=== PATIENT | male | born 1970 | race Caucasian/White ===

== ENCOUNTER 2018-07-20 03:29 | Observation (INO) | payer BC ==
[2018-07-20] MEDS ORDERED: SODIUM CHLORIDE 0.9% 1000ML 1,000 ML IVS ONE ×2 (03:40→05:10)
[2018-07-20] MEDS ORDERED: ONDANSETRON INJ 4 MG/2 ML VIAL IV ONE (03:40)
--- NOTE | 2018-07-20 03:44 | ED.PDOC ---
History of Present Illness - General Chief Complaint: GI Problem Stated Complaint: N/V Time Seen by Provider: 07/20/18 03:34 Source: patient Exam Limitations: no limitations - History of Present Illness Initial Comments: WAS RECOVERED ALCOHOLIC FOR 90 D SOBER, DRANK TOO MUCH OVER THE WEEKEND. HAVING N/V SINCE THEN X 3 D BUT NO ABD PAIN AT ALL. LAST DRINK OF ETOH WAS 4 D AGO. NO BLOOD IN VOMIT. NAUSEA BUT NO DIARRHEA. Timing/Duration: constant Severity: moderate Improving Factors: nothing Worsening Factors: nothing Associated Symptoms: nausea/vomiting Allergies/Adverse Reactions: Allergies Codeine Adverse Reaction (Verified 07/20/18 05:20) Other hallucinations Home Medications: Ambulatory Orders Ondansetron [Zofran Odt] 8 mg PO Q8H PRN #15 tab 07/20/18 Review of Systems - Review of Systems Constitutional: Denies: chills, diaphoresis, fever, malaise, weakness EENTM: States: no symptoms reported Respiratory: States: no symptoms reported Cardiology: States: no symptoms reported Gastrointestinal/Abdominal: States: nausea, vomiting. Denies: abdominal pain, constipation, diarrhea Genitourinary: Denies: dysuria, frequency, pain Musculoskeletal: States: no symptoms reported Skin: States: no symptoms reported Neurological: States: no symptoms reported. Denies: headache, weakness Endocrine: Denies: intolerance to cold, intolerance to heat, increased hunger, increased thirst, unexplained weight gain, unexplained weight loss Hematologic/Lymphatic: Denies: blood clots, easy bleeding All other Systems: Reviewed and Negative Family Medical History - Family History Father Family History: Unknown Physical Exam - Physical Exam General Appearance: Alert, No apparent distress, Well Nourished Eye Exam: bilateral normal Ears, Nose, Throat: hearing grossly normal, normal ENT inspection Neck: full range of motion, normal inspection Respiratory: lungs clear, normal breath sounds Cardiovascular/Chest: normal peripheral pulses, regular rate, rhythm, no murmur Peripheral Pulses: radial,right: 2+, radial,left: 2+ Gastrointestinal/Abdominal: normal bowel sounds, non tender, soft, no organomegaly, no pulsatile mass Extremity: normal range of motion, normal inspection 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 07/20/18 05:15 LIPASE NOT ELEVATED. CBC NEUTROPHILIC LEUKOCYTOSIS CMP HYPONATREMIA, ELEV BUN, EMESIS, ACUTE DEHYDRATION - NS BOLUS X 2. HYPOKALEMIA - REPLACING PO. I WILL ORDER SERUM MAG, PHOS FOR COMPLETENESS. ELEV AST - H/O ALCOHOLISM. UA PENDING. SEVERE VIRAL GASTROENTERITIS BASED ON SYMPTOMATOLOGY, ELEV WBC AND NEUTS, NAUSEA RESULTING IN EMESIS X 3 D, RESULTING IN DEHYDRATION/HYPOVOLEMIA AND LOW ELECTROLYTES (NA, K+). NOTE: PT IS 4 D SOBER THUS NO CONCERN FOR DELIRIUM TREMENS. I BELIEVE THE DRINKING OVER THE WEEKEND IS COINCIDENTAL TIMING WITH THE GASTROENTERITIS. WITH LYTES LOW THEY ARE AND DEHYDRATION/N/V, PT NEEDS IV REPLETION. I SPOKE WITH KEELEY FALK, HOSPITALIST WHO IS ADMITTING. THANK YOU, [facility] AND KEELEY FALK, FOR ACCEPTING FURTHER CARE OF THIS PT. Departure - Departure Clinical Impression: Viral gastroenteritis, Hypovolemia due to dehydration, Acute hyponatremia, Hypokalemia, Elevated BUN, Elevated AST (SGOT), Neutrophilic leukocytosis Nausea & vomiting Qualifiers: Vomiting type: unspecified Vomiting Intractability: non-intractable Qualified Code(s): R11.2 - Nausea with vomiting, unspecified Disposition: Admit Patient Condition: Fair Departure Forms: ED Discharge - Pt. Copy, Patient Portal Self Enrollment Diet: bland diet Prescriptions: Ondansetron [Zofran Odt] 8 mg PO Q8H PRN #15 tab PRN Reason: Nausea Home Medications: Ambulatory Orders Ondansetron [Zofran Odt] 8 mg PO Q8H PRN #15 tab 07/20/18 Decision To Admit - Decistion To Admit Decision to Admit Reason: Admit from ER Decision to Admit Date: 07/20/18 Decision to Admit Time: 05:28
[2018-07-20] MEDS ORDERED: POTASSIUM CHLORIDE 20 MEQ TAB PO ONE (05:12)
[2018-07-20] MEDS ORDERED: POTASSIUM BICARBONATE 25 MEQ TAB ONE (05:17)
[2018-07-20] MEDS ORDERED: POTASSIUM BICARBONATE 25 MEQ TAB PO ONE (05:21)
--- NOTE | 2018-07-20 05:31 | HP ---
SUPERVISING PHYSICIAN: Alexandr Rodriguez MD CHIEF COMPLAINT: Nausea, vomiting and hiccups. HISTORY OF PRESENT ILLNESS: This is a 47-year-old male patient who has been a recovering alcoholic for some time and he "fell off the wagon" this weekend and drank too much. Shortly thereafter, he started with nausea and vomiting for three days. He also has had hiccups on and off during the same time and has had hiccups in the past. His last drink of alcohol was approximately four days ago. He had no other complaints of abdominal pain, dizziness, weakness, DTs or chest pain. In the Emergency Room, he was severely dehydrated with significant hypokalemia and hyponatremia. His sodium was 128, potassium 2.8, chloride 84, BUN 19. Glucose 119, serum osmolality 260.5, total bilirubin 1.9 with AST 81 and serum total protein was 8.8. White count was 12,600 with hemoglobin 16.2, hematocrit 46.6. There was no left shift on differential. Urinalysis was basically within normal limits with the exception of trace of lysed urine blood. He was given several liters of normal saline and was also given some potassium supplementation. He also complained of a sore throat, but mostly due to the vomiting. He felt like the hiccups caused as much of the vomiting as anything else. He has been unable to eat for the past three days and I was called for admission to the hospital. PAST MEDICAL HISTORY: 1. Gastroesophageal reflux disease. 2. Alcoholism. PAST SURGICAL HISTORY: 1. Right knee surgery. OUTPATIENT MEDICATIONS: None. ALLERGIES: CODEINE. SOCIAL HISTORY: He lives in [place]. He is . He denies smoking or illicit drug use, but he does admit to a past history of drinking alcoholic beverages as mentioned in the history of present illness. REVIEW OF SYSTEMS: GENERAL: Positive for subjective fever. Negative for chills or weight changes. HEENT: Positive for sore throat. Negative for sinus symptoms, ear pain, vision changes. RESPIRATORY: Negative for wheezing, coughing or shortness of breath. CARDIAC: Negative for chest pain, palpitations or tachycardia. GASTROINTESTINAL: As per history of present illness, but he does deny diarrhea, constipation or abdominal pain. GENITOURINARY: Negative for hematuria, dysuria or polyuria. MUSCULOSKELETAL: Negative for arthralgias, myalgias. NEUROLOGIC: Denies for headache, dizziness or seizures. PHYSICAL EXAMINATION: VITAL SIGNS: Pulse rate in the Emergency Room got as high as 145. At this time , it is 98. Temperature 99.2. Blood pressure 153/100 on admission and is now 115/73. Respiratory rate 18. O2 saturation 93% on room air. GENERAL: This is a 47-year-old male patient who is lying in his hospital bed. He is in no acute distress except for he does have hiccups. HEENT: Normocephalic, atraumatic. Pupils are equal and reactive. Posterior pharynx is erythematous. Oropharynx is clear. NECK: Supple without mass. RESPIRATORY: Essentially clear to auscultation bilaterally. CHEST: There is equal rise and fall of the chest with inspiration and expiration. CARDIOVASCULAR: Regular rate and rhythm. GASTROINTESTINAL: Abdomen is soft, nondistended, nontender. Bowel sounds are positive. EXTREMITIES: No cyanosis, clubbing or edema. NEUROLOGIC: Awake, alert and oriented times three. LABORATORY: Labs and films are as per history of present illness. His additional lab after admission shows sodium improved to 134 with potassium 3.3, chloride 95. Osmolality 271.5. Bilirubin down to 1.3. AST 65, lipase 14. WBCs down to 8.9. All other labs and films have been reviewed via the EMR. IMPRESSION: 1. Nausea and vomiting with dehydration secondary to gastroenteritis. 2. Chronic hiccups that may be complicating his nausea and vomiting. 3. Severe electrolyte imbalance with hypokalemia, hyponatremia and hypochloremia. 4. ETOH abuse. 5. Mild leukocytosis, improved. 6. Mildly elevated AST that is slightly improved. 7. Gastroesophageal reflux disease. PLAN: We will admit the patient to the hospital. I will continue to give him several liters of fluids for his dehydration. We will advance his diet if he no longer has any emesis as he has Zofran. I have also done a strep swab as well as a throat culture. He has additional potassium supplementation today and I will repeat his labs in the morning. I have ordered Thorazine for the hiccups. I will not order any antibiotics at this time. I will continue to monitor him closely. He has Lovenox for DVT prophylaxis as well as proton pump inhibitor for ulcer prophylaxis. We will continue to monitor the patient closely and follow as needed. #[id number] [facility]
[2018-07-20] MEDS ORDERED: ONDANSETRON INJ 4 MG/2 ML VIAL IV PRN (05:50)
[2018-07-20] MEDS ORDERED: SODIUM CHLORIDE 0.9% (FLUSH) 10 ML SYG IV PRN (05:50)
[2018-07-20] MEDS ORDERED: cloNIDine HCL 0.1 MG TAB PO ONE (05:57)
[2018-07-20] MEDS ORDERED: IV SET AND CAP CHANGE INJ INJ SCH (06:00)
[2018-07-20] MEDS: PANTOPRAZOLE SODIUM IV 40 MG VIAL IV SCH (06:19)
[2018-07-20] MEDS: DEX 5% W/NACL 0.9% 1000ML 1,000 ML IVS PRN ×3 (06:22→22:01)
[2018-07-20] MEDS: SODIUM CHLORIDE 0.9% (FLUSH) 10 ML SYG IV SCH ×2 (09:44→20:36)
[2018-07-20] MEDS ORDERED: BENZOCAINE-MENTH LOZ (CEPACOL) 1 EA LOZ MT ONE (10:19)
[2018-07-20] MEDS: BENZOCAINE-MENTH LOZ (CEPACOL) 1 EA LOZ MT PRN ×2 (10:21→12:58)
[2018-07-20] MEDS ORDERED: chlorproMAZINE HCL 25 MG TAB PO ONE ×3 (11:22→17:30)
[2018-07-20] MEDS: chlorproMAZINE HCL 25 MG TAB PO PRN ×3 (11:33→17:30)
[2018-07-20] MEDS ORDERED: POTASSIUM CHLORIDE 10 MEQ TAB PO ONE ×2 (12:55→13:08)
[2018-07-20] MEDS ORDERED: ENOXAPARIN SODIUM 40 MG/0.4 ML SYG SUBCU SCH (21:00)
[2018-07-21] MEDS: DEX 5% W/NACL 0.9% 1000ML 1,000 ML IVS PRN (05:42)
[2018-07-21] MEDS: PANTOPRAZOLE SODIUM IV 40 MG VIAL IV SCH (05:51)
[2018-07-21] MEDS: SODIUM CHLORIDE 0.9% (FLUSH) 10 ML SYG IV SCH (08:54)
[2018-07-21] MEDS ORDERED: INFLUENZA VIRUS VACC (ADULT) 0.5 ML SYG IM ONE (09:48)
[2018-07-21 10:23] VITALS: BP 152/99; TEMP 98.7
[2018-07-21 11:42] VITALS: O2SAT 95
[2018-07-21] MEDS ORDERED: POTASSIUM CHLORIDE 10 MEQ TAB PO ONE (12:40)
--- NOTE | 2018-07-22 10:17 | DS ---
SUPERVISING PHYSICIAN: Alexandr Rodriguez MD ADMISSION DIAGNOSES: 1. Nausea and vomiting with dehydration secondary to gastroenteritis. 2. Chronic hiccups that complicating his nausea and vomiting. 3. Severe electrolyte imbalance with hypokalemia, hyponatremia and hypochloremia. 4. Alcohol abuse. 5. Mild leukocytosis, improved. 6. Mildly elevated AST showing some slight improvement. 7. Gastroesophageal reflux disease. DISCHARGE DIAGNOSES: 1. Nausea and vomiting with dehydration secondary to gastroenteritis resolved with fluids. 2. Chronic hiccups that complicating his nausea and vomiting with patient no longer having hiccups, treated with Thorazine. 3. Severe electrolyte imbalance with hypokalemia, hyponatremia and hypochloremia improved with fluid replacement. 4. Alcohol abuse, encouraged to stop drinking. 5. Mild leukocytosis, improving with treatment. 6. Mildly elevated AST slightly improved with treatment, likely due to recent binge drinking. 7. Gastroesophageal reflux disease, stable. REASON FOR HOSPITALIZATION: Mr. Rees is a 47-year-old male patient who has been a recovering alcoholic for some time and he "fell off the wagon" this past weekend and had a binge episode of drinking. Shortly after, he started with nausea and vomiting for three days. He started having hiccups on and off during that time and had hiccups in the past but he says not to this extent. His last alcohol drink was approximately four days prior to admission. He is having no other complaints of abdominal pain, dizziness, weakness, DTs or chest pains. In the Emergency Room, he was severely dehydrated with a significant hypokalemia and hyponatremia with sodium was 128, potassium 2.8, chloride 84, BUN 19. Osmolality 260, AST 81 and serum total protein was 8.8. White count was 12,600. Urinalysis showed to be basically within normal limits except for trace of lysed blood. He was given several liters of fluid as well as some potassium supplementation. He also complained of a sore throat, mostly due to the vomiting. He felt like his hiccups were due to the vomiting more than anything. He has been unable to eat for the past three days, therefore he was admitted to the medical/surgical floor for further treatment and evaluation. LABORATORY: White count on admission was elevated at 12,600, discharge was 6, 500. Hemoglobin at discharge was 12.6, hematocrit 37.0 with platelet counts being at 126,000. Differential showed to be within normal limits. Chemistries on admission did show a severe a severe hyponatremia and hypokalemia with a sodium of 128, potassium 2.8, creatinine 0.93, serum osmolality 260, bilirubin elevated at 1.9. AST at 81. Lipase was normal at 14. With treatment of fluids and prior to discharge electrolytes had normalized except for just some mildly low potassium of 3.1. BUN and creatinine were within normal limits, creatinine at 0.64. Serum osmolality had normalized at 277 and his AST had started to return to baseline and was down to 46 prior to discharge. Magnesium levels were showing to be normal at 2.4, phosphorus was normal at 4.0. Urinalysis showed just a trace of lysed blood, otherwise was within normal limits. He did have a rapid group A strep that was negative. MICROBIOLOGY: Group A strep culture was pending. RADIOLOGY: No radiographic studies were submitted. HOSPITAL COURSE: Mr. Rodriguez was admitted to the medical/surgical floor as noted above, for severe dehydration due to binge drinking with a viral gastroenteritis likely. He was started on IV fluids and showed great improvement. There were no signs of infection, therefore, he was never started on antibiotics. He was started on a clear liquid diet on the morning of discharge and prior to discharge advanced to a regular diet and was tolerating this without any complications. It was felt that he had shown improvement and was clinically stable enough to be discharged to continue outpatient management. PLAN: Mr. Rodriguez was discharged on 07/21/18 with instructions to followup with A providers to establish with a primary care physician in the next week. Instructions included: 1. Encourage fluids to prevent dehydration. 2. Stop drinking and seek assistance if needed such as AA meetings or judaism meetings. 3. Increase diet as tolerated. No spicy foods for at least the next 3 or 4 days if not longer. He is to continue with his home medications prior to hospitalization and encouraged to take a probiotic and [id number] PPI for at least then 7 to 10 days until he can be seen in the clinic. He was instructed to return to the hospital should he show any worsening of symptoms or concerning symptoms. PRESCRIPTIONS AT DISCHARGE: 1. Zofran 8 mg every 8 hours if needed, #15. 2. Carafate 1 gram before meals, #21 with no refills. 3. Nexium or PPI of choice for the next 7 to 10 days and to be continued as needed by primary care physician. 4. Probiotic as choice. DISPOSITION: The patient is discharged to care of family. CONDITION ON DISCHARGE: Stable and improved. #[id number] [facility]
== END 2018-07-21 11:33 | disposition home or self-care (01) ==
LOC: ER 03:29 → INTOOBSV 05:30 → MS 05:30 → OBSVTOIN 05:30 → UNDOADMOB 05:30 → MS 07-21 09:04 → UNDOADMOB 07-21 09:04 → UNDODISIN 07-21 11:00
PROVIDERS: ADMIT Nurse Practitioner Acute Care; ATTEND Nurse Practitioner Family
DX: K52.9 Noninfective gastroenteritis and colitis, unspecified (principal); E86.0 Dehydration; E87.6 Hypokalemia; E87.1 Hypo-osmolality and hyponatremia; E87.8 Other disorders of electrolyte and fluid balance, not elsewhere classified; F10.20 Alcohol dependence, uncomplicated; D72.829 Elevated white blood cell count, unspecified; R06.6 Hiccough; R74.0 Nonspecific elevation of levels of transaminase and lactic acid dehydrogenase [LDH]; K21.9 Gastro-esophageal reflux disease without esophagitis; J02.9 Acute pharyngitis, unspecified; Z88.6 Allergy status to analgesic agent
CPT/HCPCS: 90471; 96361 ×2; 96374; 96375; 96376; 96372; Q0161 ×2; 90674; J2405; J7030 ×2; J1650; J7799 ×4; 80053 ×3; 87880; 36415 ×4; 81001; 85025 ×3; 83690; 83735 ×3; 84100; 87070; 94760 ×4; 99285; G0378